=== PATIENT | female | born 1960 | race Caucasian/White ===

== ENCOUNTER 2018-08-06 20:50 | Emergency (ER) | payer MEDICARE, MEDICAID ==
--- NOTE | 2018-08-06 20:57 | EDM.PDOC ---
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 Status Stat 08/06/18 21:52 CULTURE URINE [RM] Routine 08/06/18 Breakfast Nothing Per Oral Diet [DIET] - Assessment/Plan Last 24 Hours: My Active Orders 08/06/18 20:57 Peripheral IV Care [RC] . DIRECTED Abdomen Series w Chest 1V [CR] Stat H PYLORI STOOL ANTIGEN [MREF] Urgent Sodium Chloride 0.9% [Saline Flush] 10 ml FLUSH ASDIRECTED PRN Obtain Past Medical Record [OM.PC] Urgent Peripheral IV Insertion Adult [OM.PC] Stat Resuscitation Status Stat 08/06/18 21:52 CULTURE URINE [RM] Routine 08/06/18 Breakfast Nothing Per Oral Diet [DIET] Assessment:: As above Plan: As above. Extensive precautions were given to the patient and her niece, who are in agreement with the treatment plan. See Patient Instructions for further treatment and plan.
[2018-08-06 21:09] VITALS: BP 145/71
[2018-08-06] MEDS: Famotidine 20 MG/2 ML SDV IVPUSH ONE (21:13)
[2018-08-06] MEDS: Sodium Chloride 0.9% 10 ML Syringe FLUSH PRN (21:13)
[2018-08-06] MEDS: Pantoprazole 40 MG Vial IVPUSH ONE (21:15)
[2018-08-06] MEDS: GI Cocktail Oral Solution 30 ML PO ONE (21:39)
[2018-08-06 21:40] LABS: CHLORIDE,CL 101 mmol/L (98-107); SODIUM,NA 136 mmol/L (136-145)
[2018-08-06] MEDS: Nitrofurantoin Monohydrate/Macrocrystalline 100 MG Cap PO ONE (22:13)
== END 2018-08-06 22:25 | disposition home or self-care (01) ==
LOC: LL.ED 20:50
DX: K21.9 Gastro-esophageal reflux disease without esophagitis (principal); J44.9 Chronic obstructive pulmonary disease, unspecified; E11.9 Type 2 diabetes mellitus without complications; F41.8 Other specified anxiety disorders; M19.90 Unspecified osteoarthritis, unspecified site; R41.3 Other amnesia; N39.0 Urinary tract infection, site not specified; R79.89 Other specified abnormal findings of blood chemistry; F17.210 Nicotine dependence, cigarettes, uncomplicated; E78.00 Pure hypercholesterolemia, unspecified; Z91.030 Bee allergy status; Z79.899 Other long term (current) drug therapy; Z71.6 Tobacco abuse counseling; Z79.82 Long term (current) use of aspirin; Z79.84 Long term (current) use of oral hypoglycemic drugs
CPT/HCPCS: 36415; 74022; 80053; 81001; 82009; 82150; 83605; 83690; 83735; 84550; 85025; 85610; 85730; 87086; 96374; 96375; 99284; A9270; C9113; J3490; J7050

== ENCOUNTER 2021-03-08 05:25 | Emergency (ER) | payer MEDICARE, MEDICAID ==
[2021-03-08 05:35] VITALS: BP 149/92; PULSE 93
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
[2021-03-08] MEDS ORDERED: methylPREDNISolone Acetate 80 MG/ML SDV IM ONE (05:50)
== END 2021-03-08 06:06 | disposition home or self-care (01) ==
LOC: LL.ED 05:25
DX: M25.562 Pain in left knee (principal); M25.561 Pain in right knee; E11.9 Type 2 diabetes mellitus without complications; J43.1 Panlobular emphysema; M89.49 Other hypertrophic osteoarthropathy, multiple sites; K21.9 Gastro-esophageal reflux disease without esophagitis; F41.8 Other specified anxiety disorders; E78.00 Pure hypercholesterolemia, unspecified; J44.9 Chronic obstructive pulmonary disease, unspecified; M19.90 Unspecified osteoarthritis, unspecified site; E66.9 Obesity, unspecified; Z71.6 Tobacco abuse counseling; Z88.4 Allergy status to anesthetic agent; Z91.030 Bee allergy status; Z79.82 Long term (current) use of aspirin; Z79.4 Long term (current) use of insulin; Z79.899 Other long term (current) drug therapy; Z72.0 Tobacco use
CPT/HCPCS: 96372; 99283; 99284; J1040

== ENCOUNTER 2021-03-17 23:44 | Emergency (ER) | payer MEDICARE, MEDICAID ==
[2021-03-18 00:04] VITALS: BP 153/78; PULSE 95
[2021-03-18] MEDS ORDERED: traMADol 50 MG Tab PO ONE (00:32)
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
== END 2021-03-18 00:50 | disposition home or self-care (01) ==
LOC: LL.ED 23:44
DX: M25.562 Pain in left knee (principal); K21.9 Gastro-esophageal reflux disease without esophagitis; E11.9 Type 2 diabetes mellitus without complications; E66.9 Obesity, unspecified; Z88.4 Allergy status to anesthetic agent; Z91.030 Bee allergy status; Z91.048 Other nonmedicinal substance allergy status; Z79.82 Long term (current) use of aspirin; Z79.4 Long term (current) use of insulin; Z68.30 Body mass index [BMI] 30.0-30.9, adult
CPT/HCPCS: 73562-LT; 99283; A9270-GY

== ENCOUNTER 2021-04-14 23:40 | Emergency (ER) | payer MEDICARE, MEDICAID ==
[2021-04-14 23:51] VITALS: BP 147/69; PULSE 101
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
[2021-04-15] MEDS: traMADol 50 MG Tab PO ONE (00:21)
[2021-04-15] MEDS: Ketorolac 60 MG/2 ML SDV IM ONE (00:23)
[2021-04-15] MEDS: methylPREDNISolone Acetate 40 MG/ML SDV IM ONE (00:23)
== END 2021-04-15 00:40 | disposition home or self-care (01) ==
LOC: LL.ED 23:40
DX: G89.29 Other chronic pain (principal); E11.9 Type 2 diabetes mellitus without complications; E66.9 Obesity, unspecified; E78.00 Pure hypercholesterolemia, unspecified; J44.9 Chronic obstructive pulmonary disease, unspecified; Z79.82 Long term (current) use of aspirin; Z79.899 Other long term (current) drug therapy; Z68.30 Body mass index [BMI] 30.0-30.9, adult; Z79.4 Long term (current) use of insulin; Z91.048 Other nonmedicinal substance allergy status; Z88.4 Allergy status to anesthetic agent; Z91.030 Bee allergy status; Z76.0 Encounter for issue of repeat prescription
CPT/HCPCS: 96372; 99283; A9270-GY; J1030; J1885

== ENCOUNTER 2022-03-05 11:06 | Emergency (ER) | payer MEDICARE, MEDICAID ==
[2022-03-05] MEDS ORDERED: cefTRIAXone 1 GM in Sodium Chloride 0.9% 100 ML IV ONE (11:31)
[2022-03-05] MEDS ORDERED: Sodium Chloride 0.9% 1,000 ML IV ONE ×2 (11:36→12:43)
[2022-03-05] MEDS ORDERED: 50% Dextrose in Water 50 ML Syringe IVPUSH PRN ×2 (11:38→13:05)
[2022-03-05] MEDS ORDERED: Glucagon,Human Recombinant 1 MG Vial IM PRN ×2 (11:38→13:05)
[2022-03-05] MEDS ORDERED: Insulin Regular, Human 100 Units/ML 3 ML Vial SUBCUT ONE ×2 (11:38→13:05)
[2022-03-05 12:23] LABS: CHLORIDE,CL 92 mmol/L (98-107); SODIUM,NA 128 mmol/L (136-145)
[2022-03-05] MEDS ORDERED: Norepinephrine 4 MG in Dextrose 5% in Water 246 ML IV SCH ×2 (12:45)
[2022-03-05 15:05] VITALS: BP 90/55
[2022-03-05 15:06] VITALS: PULSE 21
== END 2022-03-05 13:50 ==
LOC: LL.ED 11:06
DX: A41.9 Sepsis, unspecified organism (principal); R65.21 Severe sepsis with septic shock; N17.9 Acute kidney failure, unspecified; G93.40 Encephalopathy, unspecified; E87.1 Hypo-osmolality and hyponatremia; E83.42 Hypomagnesemia; E78.00 Pure hypercholesterolemia, unspecified; J44.9 Chronic obstructive pulmonary disease, unspecified; K21.9 Gastro-esophageal reflux disease without esophagitis; E11.9 Type 2 diabetes mellitus without complications; Z88.4 Allergy status to anesthetic agent; Z88.8 Allergy status to other drugs, medicaments and biological substances; Z91.030 Bee allergy status; Z79.4 Long term (current) use of insulin; Z79.82 Long term (current) use of aspirin; Z79.899 Other long term (current) drug therapy; Z72.0 Tobacco use
CPT/HCPCS: 36415; 51702; 80053; 81001; 82947; 83605; 83735; 83880; 85025; 87040; 87077; 87086; 87088; 87186; 96365; 96367; 99285; J0696; J1815; J3490; J7030; J7060; 99284

== ENCOUNTER 2025-05-15 23:43 | Emergency (ER) | payer OTHER, MEDICAID ==
[2025-05-16 00:36] LABS: BASOPHILS ABSOLUTE AUTO 0.03 K/uL (0.00-0.20); BASOPHILS PERCENT AUTO 0.3 % (0.0-2.0); EOSINOPHILS ABSOLUTE AUTO 0.18 K/uL (0.00-0.50); EOSINOPHILS PERCENT AUTO 2.0 % (0.0-5.0); IMMATURE GRAN ABSOLUTE AUTO 0.01 10^3/uL (0.00-0.04); IMMATURE GRAN PERCENT AUTO 0.1 % (0.0-0.4); LYMPHOCYTES ABSOLUTE AUTO 2.42 K/uL (0.50-3.50); LYMPHOCYTES PERCENT AUTO 27.5 % (10.0-50.0); MONOCYTES ABSOLUTE AUTO 0.55 K/uL (0.00-1.00); MONOCYTES PERCENT AUTO 6.3 % (2.0-14.0); NEUTROPHILS ABSOLUTE AUTO 5.60 K/uL (1.40-7.00); NEUTROPHILS PERCENT AUTO 63.8 % (45.0-80.0); PLATELET COUNT,PLT 245 K/uL (150-350); RED BLOOD CELL COUNT 5.11 M/uL (3.77-5.09); RED CELL DISTRIBUTION WIDTH 13.8 % (11.2-14.1); WHITE BLOOD CELL COUNT,WBC 8.8 K/uL (4.0-10.2)
[2025-05-16 00:57] LABS: ALANINE AMINOTRANSFERASE,ALT 31 U/L (12-78); ASPARTATE AMNIOTRANSFERASE,AST 26 U/L (15-37); BILIRUBIN TOTAL 0.2 mg/dL (0.2-1.0); BLOOD UREA NITROGEN,BUN 18 mg/dL (7-18); CARBON DIOXIDE,CO2 22.7 mmol/L (21.0-32.0); CHLORIDE,CL 106 mmol/L (98-107); CREATININE 1.70 mg/dL (0.51-1.17); ESTIMATED GFR 33 mL/min (>=60); GLUCOSE RANDOM 283 mg/dL (70-99); POTASSIUM,K 4.1 mmol/L (3.5-5.1); PROTEIN TOTAL,TP 6.9 g/dL (6.4-8.2); SODIUM,NA 140 mmol/L (136-145)
[2025-05-16] MEDS ORDERED: Sodium Chloride 0.9% 10 ML Syringe FLUSH PRN (01:01)
[2025-05-16] MEDS ORDERED: Nitroglycerin 0.4 MG Tab.SL SL PRN (01:05)
[2025-05-16 01:11] LABS: INR 1.1
[2025-05-16 01:55] VITALS: BP 186/82; PULSE 67
[2025-05-16] MEDS: Heparin Sodium 5,000 Units/ML Vial IVPUSH ONE (02:06)
[2025-05-16] MEDS: Heparin Sodium/0.45% NaCl 500 ML IV SCH (02:08)
== END 2025-05-16 02:40 ==
LOC: LL.ED 23:43
DX: I21.4 Non-ST elevation (NSTEMI) myocardial infarction (principal); N28.9 Disorder of kidney and ureter, unspecified; R79.89 Other specified abnormal findings of blood chemistry; M25.511 Pain in right shoulder; I10 Essential (primary) hypertension; J44.9 Chronic obstructive pulmonary disease, unspecified; K21.9 Gastro-esophageal reflux disease without esophagitis; E11.9 Type 2 diabetes mellitus without complications; Z86.73 Personal history of transient ischemic attack (TIA), and cerebral infarction without residual deficits; F17.210 Nicotine dependence, cigarettes, uncomplicated; Z91.041 Radiographic dye allergy status; Z88.8 Allergy status to other drugs, medicaments and biological substances; Z91.013 Allergy to seafood; Z79.4 Long term (current) use of insulin; Z79.51 Long term (current) use of inhaled steroids; Z79.899 Other long term (current) drug therapy; Z79.82 Long term (current) use of aspirin
CPT/HCPCS: 36415; 71045; 73030; 80053; 83735; 83880; 84484; 85025; 85379; 85610; 85730; 93005; 96365; 99285; A9270; J1644; 93010; 99284